=== PATIENT | female | born 1985 | race Caucasian/White ===

== ENCOUNTER 2021-04-17 11:45 | Inpatient (IN) | payer BC ==
[2021-04-17 12:41] VITALS: BMI 27.8
[2021-04-17] MEDS: ELECTROLYTE-148 SOLN 1,000 ML IV SCH ×2 (13:00→14:15)
[2021-04-17 13:07] LABS: BASO % 0.4 % (0-2.0); EOS % 1.5 % (0-4.5); HEMATOCRIT 34.2 % (32.4-45.2); HEMOGLOBIN 11.4 GM/dL (10.7-15.3); LYMPH % 13.6 % (8-40); MCH 28.6 pg (25.7-33.7); MCHC 33.3 g/dl (32.0-36.0); MEAN PLT VOLUME 9.6 fl (7.5-11.1); MONO % 7.6 % (3.8-10.2); NEUT % 76.9 % (42.8-82.8); PLATELET COUNT 169 10^3/uL (134-434); RBC 3.98 M/mm3 (3.60-5.2); RDW 13.8 % (11.6-15.6); WHITE BLOOD COUNT 8.6 K/mm3 (4.0-10.0)
[2021-04-17] MEDS ORDERED: FENTANYL/BUPIVACAINE/NS/PF - PCEA - 50 ML DISP.SYRIN EP ONE (13:17)
[2021-04-17] MEDS ORDERED: PCA PUMP NR ONE (13:17)
[2021-04-17 13:21] LABS: INR 0.91 (0.83-1.09); PROTHROMBIN TIME (PATIENT) 11.2 SEC (9.7-13.0)
[2021-04-17 13:24] LABS: ACTIVATED PTT 23.2 SECONDS (25.2-36.5)
[2021-04-17] MEDS ORDERED: BUPIVACAINE HCL/PF 0.25% (2.5MG/ML) 10 ML VIAL ONE (13:32)
[2021-04-17 13:48] LABS: CALCIUM 8.1 mg/dL (8.5-10.1)
[2021-04-17] MEDS ORDERED: NALOXONE HCL 0.4 MG/ML VIAL IVPUSH PRN (13:48)
[2021-04-17 13:49] LABS: BLOOD UREA NITROGEN 10.2 mg/dL (7-18)
[2021-04-17 13:52] LABS: CREATININE 0.5 mg/dL (0.55-1.3)
[2021-04-17] MEDS ORDERED: FENTANYL/BUPIVACAINE/NS/PF - PCEA - 50 ML DISP.SYRIN EP SCH (14:00)
[2021-04-17] MEDS ORDERED: OXYTOCIN 30 UNITS in 0.9% NS 30 UNIT/500 ML INFUS.BAG IVPB ONE (14:02)
[2021-04-17] MEDS ORDERED: OXYTOCIN 30 UNITS in 0.9% NS 30 UNIT/500 ML INFUS.BAG IVPB SCH (14:15)
[2021-04-17] MEDS ORDERED: OXYTOCIN 20 UNITS in 0.9% NS 20 UNIT/1,000 ML INFUS.BAG IV ONE (16:09)
[2021-04-17] MEDS ORDERED: BENZOCAINE 20% 57 GM BOTTLE TP PRN (16:49)
[2021-04-17] MEDS ORDERED: WITCH HAZEL 50% (TUCKS) 40 PAD/JAR PAD TP PRN (16:49)
[2021-04-17] MEDS ORDERED: METHYLERGONOVINE MALEATE 0.2 MG/1 ML AMP IM PRN (16:49)
[2021-04-17] MEDS ORDERED: oxyCODONE HCL 5 MG TABLET PO PRN (16:49)
[2021-04-17] MEDS ORDERED: BENZOCAINE 28 GM HEMORRHOIDAL OINTMENT TP PRN (16:49)
[2021-04-17] MEDS ORDERED: BISACODYL 10 MG SUPP.RECT RC PRN (16:49)
[2021-04-17] MEDS ORDERED: OXYTOCIN 20 UNITS in 0.9% NS 20 UNIT/1,000 ML INFUS.BAG IV SCH (17:00)
[2021-04-18] MEDS: IBUPROFEN 600 MG TABLET (FP) PO PRN ×2 (01:20→20:12)
[2021-04-18] MEDS: ACETAMINOPHEN 325 MG TABLET (FP) PO PRN ×2 (01:23→20:13)
[2021-04-18 08:38] LABS: BASO % 0.4 % (0-2.0); EOS % 0.9 % (0-4.5); HEMOGLOBIN 9.2 GM/dL (10.7-15.3); MCH 28.8 pg (25.7-33.7); MCHC 33.1 g/dl (32.0-36.0); MEAN CELL VOLUME 87.3 fl (80-96); MEAN PLT VOLUME 9.8 fl (7.5-11.1); MONO % 6.8 % (3.8-10.2); NEUT % 77.9 % (42.8-82.8); PLATELET COUNT 134 10^3/uL (134-434); RBC 3.21 M/mm3 (3.60-5.2); RDW 13.7 % (11.6-15.6)
[2021-04-18] MEDS: PRENATAL VITAMINS W/ FOLIC ACID TABLET (FP) PO SCH (09:04)
[2021-04-18 21:59] VITALS: TEMP 98.5
[2021-04-18] MEDS ORDERED: SENNOSIDES/DOCUSATE COMBO (SENNA PLUS) TABLET (UD) PO PRN (22:00)
[2021-04-19 08:07] VITALS: BP 98/62; PULSE 74
[2021-04-19] MEDS: PRENATAL VITAMINS W/ FOLIC ACID TABLET (FP) PO SCH (09:49)
== END 2021-04-19 12:05 | disposition home or self-care (01) | DRG 807 ==
LOC: JDEL 11:45 → JLDR 12:10 → J3W 17:31
PROVIDERS: ADMIT Obstetrics & Gynecology; ATTEND Obstetrics & Gynecology
PROC: 0HQ9XZZ Repair Perineum Skin, External Approach (ICD-10-PCS; principal; 2021-04-17)
PROC: 10E0XZZ Delivery of Products of Conception, External Approach (ICD-10-PCS; 2021-04-17)
DX: O48.0 Post-term pregnancy (principal); Z37.0 Single live birth; O70.0 First degree perineal laceration during delivery; O69.1XX0 Labor and delivery complicated by cord around neck, with compression, not applicable or unspecified; Z3A.41 41 weeks gestation of pregnancy
CPT/HCPCS: 36415; 59409; 80048; 85025; 85610; 85730; 86780; 86850; 86900; 86901; C9803; U0003; U0005

== ENCOUNTER 2023-01-25 03:05 | Inpatient (IN) | payer BC ==
[2023-01-25 04:24] LABS: BASO % 0.8 % (0-2.0); EOS % 4.5 % (0-4.5); HEMATOCRIT 33.3 % (32.4-45.2); HEMOGLOBIN 11.3 GM/dL (10.7-15.3); LYMPH % 20.9 % (8-40); MCH 29.1 pg (25.7-33.7); MCHC 33.9 g/dl (32.0-36.0); MEAN CELL VOLUME 85.9 fl (80-96); NEUT % 66.8 % (42.8-82.8); PLATELET COUNT 211 10^3/uL (134-434); RBC 3.88 M/mm3 (3.60-5.2); RDW 13.8 % (11.6-15.6); WHITE BLOOD COUNT 9.2 K/mm3 (4.0-10.0)
[2023-01-25] MEDS ORDERED: PROMETHAZINE HCL 25 MG/1 ML VIAL IVPB ONE (04:24)
[2023-01-25] MEDS ORDERED: BUTORPHANOL TARTRATE 1 MG/ML VIAL IVPB ONE (04:24)
[2023-01-25] MEDS ORDERED: ELECTROLYTE-148 SOLN 1,000 ML IV SCH (04:30)
[2023-01-25] MEDS ORDERED: OXYTOCIN 20 UNITS in 0.9% NS 20 UNIT/1,000 ML INFUS.BAG IV ONE (04:31)
[2023-01-25] MEDS ORDERED: LIDOCAINE HCL 1% PRESERVATIVE FREE - 30ML VIAL ONE (04:31)
[2023-01-25 04:44] VITALS: BMI 28.3
[2023-01-25 04:45] LABS: ACTIVATED PTT 28.6 SECONDS (25.2-36.5); INR 0.92 (0.83-1.09); PROTHROMBIN TIME (PATIENT) 10.7 SEC (9.7-13.0)
[2023-01-25 04:56] LABS: CALCIUM 8.6 mg/dL (8.5-10.1)
[2023-01-25 04:58] LABS: BLOOD UREA NITROGEN 11.2 mg/dL (7-18)
[2023-01-25 05:00] LABS: CREATININE 0.5 mg/dL (0.55-1.3)
[2023-01-25] MEDS ORDERED: oxyCODONE HCL 5 MG TABLET PO PRN (05:22)
[2023-01-25] MEDS ORDERED: ACETAMINOPHEN 325 MG TABLET (FP) PO PRN (05:22)
[2023-01-25] MEDS ORDERED: BENZOCAINE 28 GM HEMORRHOIDAL OINTMENT TP PRN (05:22)
[2023-01-25] MEDS ORDERED: BISACODYL 10 MG SUPP.RECT RC PRN (05:22)
[2023-01-25] MEDS ORDERED: WITCH HAZEL 50% (TUCKS) 40 PAD/JAR PAD TP PRN (05:22)
[2023-01-25] MEDS ORDERED: BENZOCAINE 20% 57 GM BOTTLE TP PRN (05:22)
[2023-01-25] MEDS ORDERED: METHYLERGONOVINE MALEATE 0.2 MG/1 ML AMP IM PRN (05:22)
[2023-01-25] MEDS ORDERED: OXYTOCIN 20 UNITS in 0.9% NS 20 UNIT/1,000 ML INFUS.BAG IV SCH (05:30)
[2023-01-25 07:13] VITALS: RESP 18
[2023-01-25] MEDS: PRENATAL VITAMINS W/ FOLIC ACID TABLET (FP) PO SCH (09:09)
[2023-01-25] MEDS: IBUPROFEN 600 MG TABLET (FP) PO PRN ×2 (09:10→21:20)
[2023-01-25] MEDS: ZOLPIDEM TARTRATE 5 MG TABLET PO PRN (21:20)
[2023-01-26 08:28] LABS: BASO % 0.4 % (0-2.0); HEMATOCRIT 28.1 % (32.4-45.2); HEMOGLOBIN 9.9 GM/dL (10.7-15.3); LYMPH % 15.1 % (8-40); MCH 30.5 pg (25.7-33.7); MCHC 35.1 g/dl (32.0-36.0); MEAN CELL VOLUME 86.9 fl (80-96); MEAN PLT VOLUME 9.3 fl (7.5-11.1); MONO % 6.7 % (3.8-10.2); NEUT % 74.8 % (42.8-82.8); PLATELET COUNT 178 10^3/uL (134-434); RBC 3.23 M/mm3 (3.60-5.2); RDW 13.6 % (11.6-15.6); WHITE BLOOD COUNT 8.4 K/mm3 (4.0-10.0)
[2023-01-26] MEDS: PRENATAL VITAMINS W/ FOLIC ACID TABLET (FP) PO SCH (10:02)
[2023-01-26] MEDS: IBUPROFEN 600 MG TABLET (FP) PO PRN ×2 (14:46→20:22)
[2023-01-26] MEDS: ZOLPIDEM TARTRATE 5 MG TABLET PO PRN (20:24)
[2023-01-26] MEDS ORDERED: SENNOSIDES/DOCUSATE COMBO (SENNA PLUS) TABLET (UD) PO PRN (22:00)
[2023-01-27 09:46] VITALS: BP 115/78; PULSE 101; TEMP 98.7
[2023-01-27] MEDS: IBUPROFEN 600 MG TABLET (FP) PO PRN (09:59)
[2023-01-27] MEDS: PRENATAL VITAMINS W/ FOLIC ACID TABLET (FP) PO SCH (09:59)
== END 2023-01-27 13:55 | disposition home or self-care (01) | DRG 807 ==
LOC: JDEL 03:05 → JLDR 03:45 → J3W 07:45
PROVIDERS: ADMIT Obstetrics & Gynecology; ATTEND Obstetrics & Gynecology
PROC: 10E0XZZ Delivery of Products of Conception, External Approach (ICD-10-PCS; principal; 2023-01-25)
PROC: 0HQ9XZZ Repair Perineum Skin, External Approach (ICD-10-PCS; 2023-01-25)
DX: O48.0 Post-term pregnancy (principal); Z37.0 Single live birth; O70.0 First degree perineal laceration during delivery; O77.0 Labor and delivery complicated by meconium in amniotic fluid; O69.81X0 Labor and delivery complicated by cord around neck, without compression, not applicable or unspecified; Z3A.40 40 weeks gestation of pregnancy
CPT/HCPCS: 36415; 80048; 85025; 85610; 85730; 86780; 86850; 86900; 86901; C9803-CS; U0003; U0005